=== PATIENT | male | born 1955 | race Caucasian/White ===

== ENCOUNTER → 2016-10-17 | Outpatient (CLI) | payer BC ==
[~2016-10-17] MED LIST: EDARBI40 MG PO; HCTZ 25MG TAB25 MG PO; NORCO 325 MG-7.1 TAB PO; NORVASC 5MG5 MG/TAB PO
== END ==
LOC: COL.RAD 07:07
DX: D33.3 Benign neoplasm of cranial nerves (principal); J34.89 Other specified disorders of nose and nasal sinuses
CPT/HCPCS: A9585

== ENCOUNTER → 2017-09-29 | Outpatient (CLI) | payer BC | LOC: COL.RAD 09:00 | DX: D33.3 Benign neoplasm of cranial nerves (principal); J32.0 Chronic maxillary sinusitis | CPT/HCPCS: A9585 ==

== ENCOUNTER → 2018-06-28 | Outpatient (CLI) | payer MEDICARE | LOC: COL.RAD 07:21 | DX: Z87.891 Personal history of nicotine dependence (principal) ==

== ENCOUNTER 2019-04-08 09:40 | Day surgery (SDC) | payer MEDICARE, OTHER ==
[2019-04-08] VITALS (11 sets, daily range): BP systolic 115–166; BP diastolic 68–84; PULSE 57–96; TEMP 97.7–98
[~2019-04-08] VITALS: Ht 177.8 cm; Wt 71.8 kg
[2019-04-08 10:40] LABS: HEMATOCRIT 39.7 % (42.0-52.0); HEMOGLOBIN 13.7 g/dl (13.5-18.0); MEAN CELL VOLUME 95 fl (80.0-100.0); MEAN CORPUSCULAR HEMOGLOBIN 33 pg (27.0-31.0); MEAN CORPUSCULAR HGB CONC 35 g/dl (33.0-37.0); MEAN PLATELET VOLUME 8.9 fl (7.4-10.4); PLATELET COUNT 267 K/mm3 (130-400); RED BLOOD COUNT 4.18 M/mm3 (4.20-5.60); REDCELL DISTRIBUTION WIDTH-CV 12.6 % (11.5-14.5)
[2019-04-08] MEDS ORDERED: ASPIRIN 32325 MG/TAB PO (10:41)
[2019-04-08] MEDS ORDERED: PRINZIDE 12.5 M1 TA1 PO (10:43)
[2019-04-08 10:44] LABS: PROTHROMBIN TIME 11.5 SECONDS (9.7-12.8)
[2019-04-08] MEDS ORDERED: OMEGA-3 1000 MG1 CAP PO (10:47)
[2019-04-08 10:48] LABS: CALCIUM 9.3 mg/dL (8.4-10.2); CREATININE, serum 0.82 (0.66-1.25); POTASSIUM 3.9 mmol/L (3.4-5.0)
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
--- NOTE | 2019-04-08 12:26 | NUR ---
SEE MERGE DOCUMENTATION FOR MEDICATION ADMINISTRATION TIMES AND INTRA/POST PROCEDURE SEDATION ASSESSMENTS.
--- NOTE | 2019-04-08 14:00 | NUR ---
Patient on bed, awake and alert. Denies any pain. Call button within reach. Elevated head for 30 degrees. Instructed patient to call nurse if he will ambulate so we can assist him on his first ambulation. Checked dressing, dry and intact.
--- NOTE | 2019-04-08 17:00 | NUR ---
Patient awake on bed. Denies any pain. Maintained on left arm sling with ice. Continues to monitor.
--- NOTE | 2019-04-08 18:31 | NUR ---
Endorsed patient to winchman/crane operator nurse. Instructed patient to continue with ice application. Denies any pain. Assisted with needs.
--- NOTE | 2019-04-08 20:00 | NUR ---
Report received from BAUTISTA Hairston. Assessment complete. Alert and oriented. Family at bedside. Denies any pain at this time. Verbalizes slight discomfort to left upper chest upon movement. Pt refused any pain meds at this time. Dressing to left upper chest CDI, left arm placed in sling with ice pack over chest. INT to LF patent, dressing CDI. Tele monitor in place, leads checked. Meds administered as ordered. Needs met. Call light within reach.
[2019-04-09 00:05] VITALS: BP 167/79; PULSE 61; TEMP 98
[2019-04-09 03:30] VITALS: BP 158/73; PULSE 60; TEMP 97.4
--- NOTE | 2019-04-09 05:32 | NUR ---
Pt uneventful during this shift. Call light within reach.
--- NOTE | 2019-04-09 06:47 | NUR ---
Report given to BAUTISTA Zarate.
[2019-04-09 07:01] LABS: BASO % 0.5 % (0.0-2.0); EOS # 0.3 (0.0-0.7); EOS % 3.1 % (0-4.0); GRAN # 5.9 (1.4-6.5); GRAN % 67.8 % (42.2-75.2); HEMATOCRIT 40.1 % (42.0-52.0); HEMOGLOBIN 13.7 g/dl (13.5-18.0); LYMPH # 1.5 (1.2-3.4); LYMPH % 17.2 % (20.0-51.0); MEAN CELL VOLUME 95 fl (80.0-100.0); MEAN CORPUSCULAR HEMOGLOBIN 33 pg (27.0-31.0); MEAN CORPUSCULAR HGB CONC 34 g/dl (33.0-37.0); MEAN PLATELET VOLUME 9.2 fl (7.4-10.4); MONO % 11.1 % (1.7-9.3); PLATELET COUNT 268 K/mm3 (130-400); RED BLOOD COUNT 4.21 M/mm3 (4.20-5.60); REDCELL DISTRIBUTION WIDTH-CV 12.7 % (11.5-14.5)
[2019-04-09 07:19] LABS: CALCIUM 9.5 mg/dL (8.4-10.2); CREATININE, serum 0.82 (0.66-1.25)
[2019-04-09 08:01] VITALS: BP 159/75; PULSE 61; TEMP 98.1
--- NOTE | 2019-04-09 10:47 | NUR ---
Visited, listened, and provided spiritual care.
[2019-04-09 12:41] VITALS: BP 135/73; PULSE 66; TEMP 97.8
--- NOTE | 2019-04-09 13:09 | NUR ---
Plan: To returm home in [facility]. Assess: SW met with patient about discharge. 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 Client reports that he has a pacemaker and milena on his phone to monitor. Client reports that he uses [facility] for medications. PCP is reported to Richard Haddad. EMR contact is Rody Salgado . Patient reports that he has transportation home. Action: Educated client on community resources. No additonal needs identified.
[2019-04-09 15:57] VITALS: BP 123/70; PULSE 67; TEMP 97.8
[2019-04-09 19:45] VITALS: BP 132/70; PULSE 60; TEMP 99
--- NOTE | 2019-04-09 20:05 | NUR ---
Recieved report from BAUTISTA Zarate. Alert and oriented. Pt sitting up in chair watching TV. Denies any pain or discomfort. Meds given as ordered. Needs met. Tele monitor in place, leads checked. Call light within reach.
[2019-04-10 00:33] VITALS: BP 153/70; PULSE 65; TEMP 98.3
[2019-04-10 04:10] VITALS: BP 155/74; PULSE 67; TEMP 98.2
--- NOTE | 2019-04-10 05:43 | NUR ---
Pt uneventful during this shift. Call light within reach.
--- NOTE | 2019-04-10 06:51 | NUR ---
Report given to BAUTISTA Zarate.
[2019-04-10 06:56] LABS: BASO % 0.4 % (0.0-2.0); EOS # 0.3 (0.0-0.7); EOS % 3.9 % (0-4.0); GRAN # 4.1 (1.4-6.5); HEMATOCRIT 39.7 % (42.0-52.0); HEMOGLOBIN 13.6 g/dl (13.5-18.0); LYMPH # 1.6 (1.2-3.4); LYMPH % 23.2 % (20.0-51.0); MEAN CELL VOLUME 95 fl (80.0-100.0); MEAN CORPUSCULAR HEMOGLOBIN 33 pg (27.0-31.0); MEAN CORPUSCULAR HGB CONC 34 g/dl (33.0-37.0); MEAN PLATELET VOLUME 9.3 fl (7.4-10.4); MONO # 0.9 (0.1-0.6); MONO % 12.4 % (1.7-9.3); PLATELET COUNT 245 K/mm3 (130-400); RED BLOOD COUNT 4.16 M/mm3 (4.20-5.60); REDCELL DISTRIBUTION WIDTH-CV 12.6 % (11.5-14.5)
[2019-04-10 07:09] LABS: CALCIUM 9.4 mg/dL (8.4-10.2); CREATININE, serum 0.77 (0.66-1.25); POTASSIUM 3.8 mmol/L (3.4-5.0)
[2019-04-10 07:57] VITALS: BP 154/81; PULSE 61; TEMP 97.9
[2019-04-10 11:34] VITALS: BP 152/81; PULSE 66; TEMP 97.8
[2019-04-10] MEDS ORDERED: BETAPACE 120MG120 MG PO (13:04)
[2019-04-10] MEDS ORDERED: CEPHALEXIN500 M1 PO (13:04)
--- NOTE | 2019-04-10 14:25 | NUR ---
DISCHARGE EDUCATION PROVIDED. NO QUESTIONS NOTED. IV AND TELE REMOVED WITHOUT ISSUE. DAUGHTER AT ARRIVED TO DRIVE PT HOME. THIS NURSE ESCORTED PT ABHI.
== END 2019-04-10 14:25 | disposition home or self-care (01) ==
LOC: COL.CAR 09:40 → MEDICAL 13:45 → COL.CAR 04-10 14:25 → MEDICAL 04-10 14:25
PROVIDERS: Internal Medicine Cardiovascular Disease
DX: I49.5 Sick sinus syndrome (principal); I48.91 Unspecified atrial fibrillation; D33.3 Benign neoplasm of cranial nerves; F32.9 Major depressive disorder, single episode, unspecified; K57.30 Diverticulosis of large intestine without perforation or abscess without bleeding; E78.5 Hyperlipidemia, unspecified; I10 Essential (primary) hypertension; F43.10 Post-traumatic stress disorder, unspecified; Z79.82 Long term (current) use of aspirin; Z87.891 Personal history of nicotine dependence; Z80.9 Family history of malignant neoplasm, unspecified; Z82.49 Family history of ischemic heart disease and other diseases of the circulatory system
CPT/HCPCS: OP; J0690; J2250; J3010; J7030

== ENCOUNTER → 2020-12-19 | Outpatient (CLI) | payer MEDICARE, OTHER ==
[~2020-12-19] MED LIST changes: +ASPIRIN 32325 MG/TAB PO; +BETAPACE 120MG120 MG PO; +BETAPACEAF120 PO; +CEPHALEXIN500 M1 PO; +COD LIVER OIL1 CAP PO; +ELIQUIS 5MG PO; +OMEGA-3 1000 MG1 CAP PO; +PRINZIDE 12.5 M1 TA1 PO; +VITAMIN D31000 I1 PO
== END ==
LOC: COL.RAD 12-07 10:30
DX: D33.3 Benign neoplasm of cranial nerves (principal); J32.0 Chronic maxillary sinusitis
CPT/HCPCS: A9585

== ENCOUNTER 2021-01-23 08:34 | Day surgery (SDC) | payer MEDICARE, OTHER ==
[~2021-01-23] VITALS: Ht 177.8 cm; Wt 67.0 kg
[~2021-01-23 08:34] MED LIST changes: -BETAPACEAF120 PO; -COD LIVER OIL1 CAP PO; -ELIQUIS 5MG PO; -VITAMIN D31000 I1 PO
[2021-01-23] MEDS ORDERED: BETAPACEAF120 PO (08:56)
[2021-01-23] MEDS ORDERED: ELIQUIS 5MG PO (08:57)
[2021-01-23] MEDS ORDERED: COD LIVER OIL1 CAP PO (08:57)
[2021-01-23] MEDS ORDERED: VITAMIN D31000 I1 PO (08:58)
[2021-01-23 09:57] VITALS: BP 162/70; PULSE 65; TEMP 98
--- NOTE | 2021-01-23 10:19 | NUR ---
Discharge instructions given. Pt ambulated to private car wtih steay gait and daughter
== END 2021-01-23 10:20 | disposition home or self-care (01) ==
LOC: COL.CAR 08:34
DX: I48.0 Paroxysmal atrial fibrillation (principal); I10 Essential (primary) hypertension; Z20.822 Contact with and (suspected) exposure to COVID-19; Z79.82 Long term (current) use of aspirin; Z79.899 Other long term (current) drug therapy; Z53.8 Procedure and treatment not carried out for other reasons

== ENCOUNTER 2022-07-11 11:12 | Day surgery (SDC) | payer MEDICARE, OTHER ==
[~2022-07-11] VITALS: Ht 177.8 cm; Wt 66.8 kg
[~2022-07-11 11:12] MED LIST changes: +BETAPACEAF120 PO; +COD LIVER OIL1 CAP PO; +ELIQUIS 5MG PO; +VITAMIN D31000 I1 PO
[2022-07-11] MEDS ORDERED: BETAPACE160 MG (12:20)
[2022-07-11 13:39] VITALS: BP 186/102; PULSE 72; TEMP 97.7
[2022-07-11 14:16] VITALS: BP 161/100; PULSE 76; TEMP 97.7
[2022-07-11 14:31] VITALS: BP 100/95; PULSE 72
[2022-07-11 14:46] VITALS: BP 190/90; PULSE 72
--- NOTE | 2022-07-11 14:50 | NUR ---
1416 RETURNS TO ROOM 5 PER CART. AWAKE, ALERT. RESP UNLABORED. AMBULATES TO RECLINER WITH STAND BY ASSIST. DENIES NAUSEA OR ABD PAIN. CALL LIGHT AT SIDE. 1427 DR. TREVINO HERE TO VISIT WITH PATIENT. 1430 TOLERATES PO JUICE AND MUFFIN WITHOUT NAUSEA 1435 DISCHARGE INSTRUCTIONS REVIEWED. PATIENT VERBALIZES UNDERSTANDING. COPY PROVIDED IN DISCHARGE FOLDER 1445 DRESSES SELF
== END 2022-07-11 14:50 | disposition home or self-care (01) ==
LOC: SDCO 11:12
DX: Z12.11 Encounter for screening for malignant neoplasm of colon (principal); K57.30 Diverticulosis of large intestine without perforation or abscess without bleeding
CPT/HCPCS: J2704; J7120

== ENCOUNTER 2023-05-07 08:26 | Day surgery (SDC) | payer MEDICARE ==
[~2023-05-07] VITALS: Ht 175.3 cm; Wt 71.4 kg
[2023-05-07] VITALS (8 sets, daily range): BP systolic 134–158; BP diastolic 76–87; PULSE 69–74; TEMP 98.1
[~2023-05-07 08:26] MED LIST changes: +ALDACTONE 25MG25 M1 PO; +AMOXICILLIN 8751 TAB PO; +BETAPACE160 MG; +CATAPRES-TTS 10.1 M1 TD; +COZAAR100 MG PO; +DOXYCYCLINE HY100 MG PO; +K-DUR20 MEQ PO; +LASIX 20MG TABL20 MG PO; +NORVASC 10MG10 MG PO; +PACERONE400 MG PO; +PRADAXA 150MG150 MG PO; +PREDNISONE20 MG PO
[2023-05-07 09:09] LABS: HEMATOCRIT 39.8 % (42.0-52.0); HEMOGLOBIN 13.3 g/dl (13.5-18.0); MEAN CELL VOLUME 94 fl (80.0-100.0); MEAN CORPUSCULAR HEMOGLOBIN 31 pg (27-31); MEAN CORPUSCULAR HGB CONC 33 g/dl (33.0-37.0); MEAN PLATELET VOLUME 8.8 fl (7.4-10.4); PLATELET COUNT 249 K/mm3 (130-400); RED BLOOD COUNT 4.24 M/mm3 (4.20-5.60); REDCELL DISTRIBUTION WIDTH-CV 14.3 % (11.5-14.5)
[2023-05-07] MEDS ORDERED: COUMADIN 5MG5 MG/TAB PO (09:12)
[2023-05-07] MEDS ORDERED: COUMADIN 77.5 MG/TAB PO (09:12)
[2023-05-07 09:18] LABS: INR 4.2 (0.8-3.0); PROTHROMBIN TIME 44.3 SECONDS (9.7-12.8)
[2023-05-07 09:27] LABS: PARTIAL THROMBOPLASTIN TIME 56.3 SECONDS (26.0-37.0)
[2023-05-07 09:29] LABS: CALCIUM 9.6 mg/dL (8.4-10.2); CREATININE, serum 0.99 mg/dL (0.72-1.25)
[2023-05-07 09:49] LABS: THYROID STIMULATING HORMONE 19.242 uIU/mL (0.350-4.940)
--- NOTE | 2023-05-07 14:58 | NUR ---
Pt ambulated to EU12 with a steady gait, accompanied by their daughter. Pt is scheduled for a EDY/CV. EKG done. IV started, labs drawn. Meds and HX reviewed with the pt. Consent for the procedure signed. Post procedure the pt was offered something to eat and drink. Pt accepted a water, but did not want anything to eat. Pt recovered with us for a few hours. After the recovery the pt was given discharge education and information. No questions at this time. Pt exited the unit to their daughters car.
== END 2023-05-07 14:45 | disposition home or self-care (01) ==
LOC: COL.CAR 08:26
PROVIDERS: Internal Medicine Cardiovascular Disease
DX: I48.0 Paroxysmal atrial fibrillation (principal); I49.5 Sick sinus syndrome; I10 Essential (primary) hypertension; I08.0 Rheumatic disorders of both mitral and aortic valves; Z95.0 Presence of cardiac pacemaker; Z87.891 Personal history of nicotine dependence
CPT/HCPCS: J2704